=== PATIENT | female | born 1980 | race Caucasian/White ===

== ENCOUNTER 2018-11-15 09:51 | Day surgery (SDC) | payer BC, SELFPAY ==
--- NOTE | 2018-11-07 12:07 | PCM.HP.STD ---
Problem List (1) Menorrhagia with irregular cycle Status: Chronic History of Present Illness Date of Admission: 11/15/18 Chief Complaint: Heavy irregular and painful periods The patient is a 38 year old F [who has been experiencing heavy prolonged periods for some time with periods lasting 8 to 14 days. Some times cannot leave the house due to extent of bleeding. 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, managed as type 2 E13.9 Fibromyalgia M79.7 Allergies No Known Allergies Allergy (Verified 10/25/18 10:04) Home Medications: Ambulatory Orders Medication Instructions Recorded Duloxetine HCl 11/07/18 Ferrous Sulfate 11/07/18 Gabapentin 11/07/18 Lisinopril [Prinivil] 5 mg PO 11/07/18 Metformin HCl 11/07/18 Paxil 11/07/18 Wellbutrin Xl 11/07/18 Surgical History: - - C/S x 4 tubal ligation Psychiatric History: Anxiety, Depression [employer] History: dysfunctional uterine bld Lives: Spouse/ Significant Other Smoking Status: Former smoker Tobacco Use: Non-smoker, Cigarettes Alcohol: None Drugs: None, Marijuana - has medical marijuan card - *Family History Maternal History Items: No pertinent history Paternal History Items: No pertinent history Review of Systems Constitutional: Denies: Anorexia, Chills, Fever Eyes: Denies: Blurred vision HEENT: Denies: Difficulty Hearing, Head Aches Cardiovascular: Denies: Chest Pain, Claudication, Chest Pressure, Chest Tightness, Edema Respiratory: Denies: Cough, Shortness of Breath, Shortness of breath at rest Gastrointestinal: Denies: Abdominal Pain Genitourinary: Denies: Dysuria, Frequency Gynecological: Reports: Excessively long or heavy periods Psychiatric: Reports: Depression Endocrine: Denies: Change in Body Habitus, Heat/ Cold Intolerance VTE Information - Inpt Only VTE Present on Admission: No VTE Mechan Device Prophylaxis: SCD's VTE Pharm Prophylaxis ordered?: No Subjective: Well appearing Objective: Afeb VSS BP 124/76 weight 182 height 64.5 in - Physical Exam General: Alert, Oriented x3, Cooperative, No apparent distress Neck: No Nodes Lungs: Clear to auscultation, Normal air movement Cardiovascular: Regular rate, Regular Rhythm Abdomen: Soft, Non Tender, Non-Distended Extremities: No edema Skin: No rashes Neurological: Neuro grossly intact Psych/Mental Status: Normal Affect Comment: Normal pelvic exam Assessment/Plan Menorrhagia with iron deficiency anemia--Options discussed and decision for hysteroscopy, D and C and Rosie ablation scheduled. Procedures, risks, and postoperative expectations discussed. All questions answered consents obtained.
[2018-11-13 11:49] LABS: Hematocrit 27.9 % (37-47); Hemoglobin 7.8 g/dl (12.0-15.0); Mean Corpuscular Hgb 22.2 pg (27.0-32.0); Mean Corpuscular Volume 79.5 fL (81-99); Mean Platelet Vol. 8.9 fl (6.2-12.0); Platelet Count 337 K/mm3 (150-450); RBC Distribution Width SD 47.6 fl (35.1-43.9); Red Blood Count 3.51 M/mm3 (4.2-5.4); White Blood Count 4.8 K/mm3 (4.4-11.0)
[2018-11-13 11:51] LABS: Prothrombin Time (Protime)PT. 12.7 SECONDS (11.7-14.9)
[2018-11-13 11:52] LABS: Partial Thromboplast Time 32.1 Seconds (24.1-36.2)
[2018-11-13 11:55] LABS: Scan Indicated on CBC? Y/N NO
[2018-11-13 12:11] LABS: hCG Titer Quant., Serum 1 mIU/mL (<9 non-preg)
[2018-11-15] VITALS (7 sets, daily range): BP systolic 94–129; BP diastolic 60–77; PULSE 82–100; RESP 16–18; TEMP 36.6–36.9; O2SAT 97–100; BMI 29.9
[2018-11-15 10:19] LABS: Internal QC Validated? YES +Cl - CLEAR BKGD; Pregnancy, Urine Negative Negative
[2018-11-15 10:51] LABS: Bedside Glucose 113 mg/dL (70-110)
--- NOTE | 2018-11-15 11:16 | DCINST_ITS ---
You will use the following diet at home:: No restrictions Your food should be the consistency of: Regular Discharge Activity: Return to Normal Activity, No Restrictions, May Drive, May not drive while taking narcotic pain medications., May Shower Return to work on:: 11/22/18 May shower in (days): 0 May resume sexual activity in: 3 weeks Call your doctor if your incision/area has: Sudden Increased Bleeding, Increased Pain/ Swelling, Foul Smelling Discharge Call your doctor if you observe: Fever of 101 or Higher, Inability to urinate, Inability to have a bowel movement, Using more than one pad per hour, Shortness of breath, Chest pain, Calf discomfort, Uncontrolled pain Cleanse incision/area with: Soap & Water Allergies/Adverse Reactions: Allergies No Known Allergies Allergy (Verified 11/15/18 10:20) Medications to take at Discharge Bupropion HCl [Bupropion Xl] 300 mg PO DAILY 11/13/18 Clonazepam 1 mg PO PRN PRN 11/13/18 Duloxetine Hcl [Cymbalta] 30 mg PO DAILY 11/13/18 Ferrous Sulfate [Iron] 325 mg PO DAILY 11/13/18 Fexofenadine HCl [Allergy Relief] 180 mg PO DAILY 11/13/18 Gabapentin [Neurontin] 1,200 mg PO TIDCM 11/13/18 Lisinopril [Prinivil] 5 mg PO DAILY 11/13/18 Metformin HCl [Glucophage] 1,000 mg PO BIDCM 11/13/18 Paroxetine HCl [Paxil] 40 mg PO DAILY 11/13/18 Propranolol HCl [Inderal LA (Beta Brittney)] 60 mg PO DAILY 11/13/18 Trazodone ER [Oleptro Er] 150 mg PO QHS 11/13/18 Zolpidem Tartrate [Ambien] 10 mg PO PRN PRN 11/13/18 Ibuprofen 600 mg PO 4X/DAY #30 tab 11/15/18 Oxycodone [Oxyir] 5 mg PO Q4H PRN PRN 7 Days #14 tab 11/15/18 The following prescriptions were given: Oxycodone [Oxyir] 5 mg PO Q4H PRN PRN 7 Days #14 tab PRN Reason: Severe Pain (6-05/17) Ibuprofen 600 mg PO 4X/DAY #30 tab Primary Care Physician: Town Doctor,Out of [Primary Care Provider] - Test Results: Test results from this visit will be discussed in further detail at your follow- up appointment, if applicable. Please Follow Up With: Johnathan Reveles MD When: one week Proposed Discharge Date: 11/15/18
--- NOTE | 2018-11-15 11:17 | PCM.OPRPT ---
Problem List (1) Menorrhagia with irregular cycle Status: Chronic Report of Operation Date of Procedure: 11/15/18 Pre-Operative Diagnosis: Menorrhagia with irregular cycle with anemia due to excessive menstruation Post-Operative Diagnosis: Same Surgery/Procedure Performed:: Hysteroscopy, Dilation and Curettage, Rosie Endometrial Ablation Description of Surgical Findings:: Endometrial cavity sounds to 9 cm from external cervical os. Cavity with normal appearance but with very thickened endometrium throughout. No endometrial polyps or submucous fibroids noted. Rosie was set to uterine cavity length of 6.5 cm. owner/photographer: None Type of Anesthesia:: MAC Anesthesiologist: Scott Soriano Special Medications: none Specimen's removed: Endometrial curettings Drains: none Estimated Blood Loss (mL): 20cc Fluids Replaced: 600cc LR Description of Procedure: Caroline was taken to the OR with IV running. She was given two grams of Cefotetan intravenously prior to the start of the procedure. MAC anesthesia was induced without complication. A red rubber catheter was used to drain the bladder. She was prepped and draped in the dorsal lithotomy position. A weighted speculum was placed in the posterior vagina, the cervix identified and the anterior lip grasped with a single toothed tenaculum. The cervix was then dilated to 21 Frisian without difficulty. The hysteroscope was introduced into the endometrial cavity and findings were as mentioned above. A sharp curettage was then performed to a gritty texture throughout. The Rosie device was then placed and put though it's safety checks. The device was then activated and a 120 second ablation procedure was performed. The device was then removed and the hysteroscope again placed. The findings were typical after an ablation. All instruments were then removed from the vagina. Sponge and instrument counts were correct. She was reversed from anesthesia and taken to the recovery room in stable condition. Grafts/Implants Used: none - Complications none - Admit VTE Documentation VTE Present on Admission: No VTE Mechan Device Prophylaxis: SCD's VTE Pharm Prophylaxis ordered?: No
--- NOTE | 2018-11-15 11:30 | EMB_PTH ---
PATIENT: BASIM DOVER LOC: [facility] – [place] U#:[id number] AGE/SX: 38/F ROOM: RE11/15/[address]: Dr. Johnathan Reveles MD : 1980 BED: DIS: 11/15/2018 SPEC #: [id number] RECD: 11/15/18 11:49 STATUS: GENNY RAMOS #: [id number] TRISHA: 11/15/18 11:[address]: Johnathan Reveles DEPT: SURGICAL PATHOLOGY RECD BY: Carine Laureano ENTERED: 11/15/18 13:31 SP TYPE: ENDOM BX/C FREYA DR: Out of Town Doctor Tissues: Endometrium, NOS Procedures: Surgery Specimen Level IV HEADER OPERATION: Hysteroscopy, D & C, Rosie PRE-OP DIAGNOSIS: Excessive and frequent menstruation with irregular cycles and iron deficiency anemia TISSUE SUBMITTED: Endometrial curettings MICROSCOPIC DIAGNOSIS Endometrial curettings: Secretory endometrium. A few fragments of myometrium. SJ:cintia 11/16/18 MICROSCOPIC DESCRIPTION Slides are reviewed. GROSS DESCRIPTION Received in fixative is one container labeled with the patient's name and designated endometrial curettings. The specimen consists of multiple irregular fragments of pink soft tissue mixed with polypoid fragments that in aggregate measure 7.5 x 3 x 0.8 cm. The entire specimen is submitted in six cassettes. / ANNAMARIA:cintia 11/15/18 TC:4 CPT: 47953
== END 2018-11-15 13:46 | disposition home or self-care (01) ==
LOC: SDC 09:53 → AC 09:57
PROVIDERS: Referring Provider Obstetrics & Gynecology; Visit Provider Obstetrics & Gynecology
PROC: 0U5B8ZZ Destruction of Endometrium, Via Natural or Artificial Opening Endoscopic (ICD-10-PCS; CPT 58558; principal; 2018-11-15 11:15)
DX: R93.89 Abnormal findings on diagnostic imaging of other specified body structures (principal); N92.6 Irregular menstruation, unspecified; D50.9 Iron deficiency anemia, unspecified; F32.9 Major depressive disorder, single episode, unspecified; E13.9 Other specified diabetes mellitus without complications; M79.7 Fibromyalgia; F12.20 Cannabis dependence, uncomplicated
CPT/HCPCS: 00952; 58563; 36415; 81025; 82962; 84702; 85027; 85610; 85730; 86850; 86900; 88305; J7120; J2405